=== PATIENT | female | born 1975 | race Asian ===

== ENCOUNTER 2016-05-19 22:14 | Emergency (ER) | payer MEDICAID ==
[~2016-05-19] VITALS: Ht 162.6 cm; Wt 72.6 kg
[2016-05-19 22:20] VITALS: BP_SYST 144
[2016-05-19] MEDS ORDERED: BACITRACIN 1 GM OINT TP ONE (22:36)
[2016-05-19] MEDS: IBUPROFEN 800 MG TABLET PO ONE (22:50)
[2016-05-19 23:07] VITALS: BP_SYST 130
== END 2016-05-19 23:07 | disposition home or self-care (01) ==
LOC: SED 22:14
DX: S50.11XA Contusion of right forearm, initial encounter (principal); V89.2XXA Person injured in unspecified motor-vehicle accident, traffic, initial encounter; Y93.89 Activity, other specified; Y99.8 Other external cause status; Y92.89 Other specified places as the place of occurrence of the external cause
CPT/HCPCS: 73090; 81025; 99284

== ENCOUNTER 2017-02-22 18:05 | Emergency (ER) | payer MEDICAID ==
[~2017-02-22] VITALS: Ht 165.1 cm; Wt 80.3 kg
[2017-02-22 18:16] VITALS: BP_SYST 120
--- NOTE | 2017-02-22 18:23 | NUR ---
Tre Burgess [employer] evaluating pt in triage room.
--- NOTE | 2017-02-22 18:26 | NUR ---
Patient triaged and placed in waiting room. VSS and patient appears in no acute distress at this time. Accompanied by daughter, awaiting available bed, and MD notified of need for MSE.
[2017-02-22] MEDS: KETOROLAC TROMETHAMINE 60 MG/2 ML VIAL IM ONE (18:43)
[2017-02-22 19:09] VITALS: BP_SYST 120
--- NOTE | 2017-02-22 19:09 | NUR ---
Patient given written and verbal discharge instructions and verbalizes understanding. ER MD discussed with patient the results and treatment provided. Patient in stable condition. ID arm band removed. Rx of lynda ellis given. Patient educated on pain management and to follow up with PMD. Pain Scale 3/10. Opportunity for questions provided and answered.
== END 2017-02-22 19:09 | disposition home or self-care (01) ==
LOC: SED 18:05
DX: S46.911A Strain of unspecified muscle, fascia and tendon at shoulder and upper arm level, right arm, initial encounter (principal); X58.XXXA Exposure to other specified factors, initial encounter; Y93.89 Activity, other specified; Y92.89 Other specified places as the place of occurrence of the external cause; Y99.8 Other external cause status
CPT/HCPCS: 96372; 99283; J1885

== ENCOUNTER 2017-04-04 19:56 | Emergency (ER) | payer MEDICAID ==
[~2017-04-04] VITALS: Ht 162.6 cm; Wt 78.9 kg
[2017-04-04 20:00] VITALS: BP_SYST 136
[2017-04-04] MEDS ORDERED: KETOROLAC TROMETHAMINE 30 MG VIAL IVP ONE (21:00)
[2017-04-04 21:27] LABS: BASOPHILS # (AUTO) 0.1 K/uL (0.0-0.2); BASOPHILS % (AUTO) 0.7 % (0.0-2.0); EOSINOPHILS # (AUTO) 0.3 K/uL (0.0-0.4); EOSINOPHILS % (AUTO) 2.9 % (0.0-4.0); HEMATOCRIT 39.8 % (36-48); HEMOGLOBIN 12.6 g/dL (12.0-16.0); LYMPHOCYTES # (AUTO) 4.1 K/uL (1.0-5.5); LYMPHOCYTES % (AUTO) 37.7 % (20.5-51.5); MEAN CORPUSCULAR HEMOGLOBIN 27 pg (27-31); MEAN CORPUSCULAR HGB CONC 32 % (32-36); MEAN CORPUSCULAR VOLUME 85 fL (79.0-98.0); MONOCYTES # (AUTO) 0.7 K/uL (0.0-1.0); MONOCYTES % (AUTO) 6.2 % (1.7-9.3); NEUTROPHILS # (AUTO) 5.7 K/uL (1.8-7.7); NEUTROPHILS % (AUTO) 52.5 % (40.0-70.0); PLATELET COUNT (AUTO) 322 K/uL (130-430); RED BLOOD CELL COUNT(AUTO) 4.67 MIL/uL (4.2-6.2); RED CELL DISTRIBUTION WIDTH 14.9 % (9.0-15.0); WHITE BLOOD COUNT (AUTO) 10.9 K/uL (4.8-10.8)
[2017-04-04 21:49] LABS: CALCIUM 9.2 mg/dL (8.4-11.0); CREATININE 0.72 mg/dL (0.55-1.30); POTASSIUM 3.6 mmol/L (3.5-5.1)
[2017-04-04 23:28] VITALS: BP_SYST 147
== END 2017-04-04 23:27 | disposition home or self-care (01) ==
LOC: SED 19:56
DX: R07.89 Other chest pain (principal)
CPT/HCPCS: 36415; 71045; 80048; 81025; 84484; 85025; 93005; 99285; J1885

== ENCOUNTER 2017-12-11 23:21 | Emergency (ER) | payer MEDICAID ==
[~2017-12-11] VITALS: Ht 167.6 cm; Wt 74.4 kg
[2017-12-11 23:33] VITALS: BP_SYST 138
[2017-12-12] MEDS ORDERED: NACL 0.9% 1,000 ML IV ONE (00:12)
[2017-12-12] MEDS ORDERED: ONDANSETRON HCL 4 MG/2 ML VIAL IVP ONE (00:15)
[2017-12-12] MEDS: SUMAtriptan SUCCINATE 6 MG/0.5 ML VIAL SUBCUT ONE ×2 (00:41→00:44)
[2017-12-12 00:45] LABS: BASOPHILS # (AUTO) 0.1 K/uL (0.0-0.2); BASOPHILS % (AUTO) 0.7 % (0.0-2.0); EOSINOPHILS # (AUTO) 0.1 K/uL (0.0-0.4); EOSINOPHILS % (AUTO) 1.5 % (0.0-4.0); HEMATOCRIT 39.3 % (36-48); HEMOGLOBIN 12.6 g/dL (12.0-16.0); LYMPHOCYTES # (AUTO) 2.6 K/uL (1.0-5.5); LYMPHOCYTES % (AUTO) 30.1 % (20.5-51.5); MEAN CORPUSCULAR HEMOGLOBIN 27 pg (27-31); MEAN CORPUSCULAR HGB CONC 32 % (32-36); MEAN CORPUSCULAR VOLUME 85 fL (79.0-98.0); MONOCYTES # (AUTO) 0.5 K/uL (0.0-1.0); MONOCYTES % (AUTO) 6.2 % (1.7-9.3); NEUTROPHILS # (AUTO) 5.3 K/uL (1.8-7.7); NEUTROPHILS % (AUTO) 61.5 % (40.0-70.0); PLATELET COUNT (AUTO) 322 K/uL (130-430); RED BLOOD CELL COUNT(AUTO) 4.63 MIL/uL (4.2-6.2); RED CELL DISTRIBUTION WIDTH 14.2 % (9.0-15.0); WHITE BLOOD COUNT (AUTO) 8.6 K/uL (4.8-10.8)
[2017-12-12 00:48] LABS: BILIRUBIN,URINE NEGATIVE (NEGATIVE); BLOOD, URINE NEGATIVE (NEGATIVE); CLARITY/URINE CLEAR (CLEAR); COLOR,URINE YELLOW (YELLOW); GLUCOSE,URINE NEGATIVE (NEGATIVE); KETONES,URINE NEGATIVE (NEGATIVE); LEUKOCYTE ESTERASE ,URINE NEGATIVE (NEGATIVE); NITRITE, URINE NEGATIVE (NEGATIVE); PH,URINE 6.5 (5.0-8.0); PROTEIN URINE NEGATIVE (NEGATIVE); UROBILINOGEN,URINE 0.2 (0.2-1.0)
[2017-12-12 00:56] LABS: CALCIUM 8.9 mg/dL (8.4-11.0); CREATININE 0.91 mg/dL (0.55-1.30); POTASSIUM 3.7 mmol/L (3.5-5.1)
[2017-12-12 00:57] LABS: PROTHROMBIN TIME 9.9 SECS (9.5-12.5)
[2017-12-12] MEDS ORDERED: HYDROcodone/ACETAMIN 5-325 MG TAB (NORCO/ VICODIN) PO ONE (01:00)
[2017-12-12 01:02] LABS: ALBUMIN 3.3 g/dL (3.4-4.8); TOTAL BILIRUBIN 0.2 mg/dL (0.0-1.0)
[2017-12-12] MEDS ORDERED: SUMAtriptan SUCCINATE 6 MG/0.5 ML VIAL SUBCUT ONE (01:45)
[2017-12-12 02:34] VITALS: BP_SYST 133
== END 2017-12-12 02:34 | disposition home or self-care (01) ==
LOC: SED 23:21
DX: K29.70 Gastritis, unspecified, without bleeding (principal); R51 Headache; R03.0 Elevated blood-pressure reading, without diagnosis of hypertension
CPT/HCPCS: 36415; 80053; 81003; 81025; 82150; 83690; 85025; 85610; 96361; 96372; 96374; 99285; J2405; J3030; J7030

== ENCOUNTER 2018-11-07 16:24 | Emergency (ER) | payer MEDICAID ==
[~2018-11-07] VITALS: Ht 160 cm; Wt 77.1 kg
[2018-11-07 16:34] VITALS: BP_SYST 146
[2018-11-07] MEDS ORDERED: RACEPINEPHRINE HCL 0.5 ML VIAL.NEB INH ONE (17:45)
[2018-11-07 19:00] VITALS: BP_SYST 145
== END 2018-11-07 19:00 | disposition home or self-care (01) ==
LOC: SED 16:24
DX: J06.9 Acute upper respiratory infection, unspecified (principal); R03.0 Elevated blood-pressure reading, without diagnosis of hypertension
CPT/HCPCS: 71045; 94640; 99283